=== PATIENT | female | born 1965 | race Hispanic/Latino ===

== ENCOUNTER 2018-12-03 23:17 | Emergency (ER) | payer SELFPAY ==
[~2018-12-03] VITALS: Ht 157.5 cm; Wt 68.0 kg
--- OUTSIDE RECORDS SUMMARY | 2018-12-03 23:19 | XMS REPORT ---
[facility] Address Unknown Phone Unavailable Care Team Providers Care Principal Technical Writer Name Role Phone Unavailable Unavailable Payers Payer Name Policy Type Policy Number Effective Date Expiration Date Problems This patient has no known problems. Allergies, Adverse Reactions, Alerts Allergy Name Allergy Type Status Severity Reaction(s) Onset Date Inactive Date Treating Clinician Comments No Known Allergies DA Active U 2018-08-18 00:00:00 No Known Allergies DA Active U 2018-08-16 00:00:00 No Known Allergies DA Active U 2016-04-01 00:00:00 Medications This patient has no known medications. Encounters Start Date/Time End Date/Time Encounter Type Admission Type Attending [facility] Facility Care Department Encounter ID 2018-12-20 00:00:00 2018-12-20 00:00:00 Outpatient [facility] [id number] 2018-12-14 00:00:00 2018-12-14 00:00:00 Outpatient [facility] [id number] 2018-12-10 00:00:00 2018-12-10 00:00:00 Outpatient [facility] [id number] 2018-12-03 18:33:55 2018-12-03 18:33:55 Outpatient [facility] [id number] 2018-11-30 09:33:46 2018-11-30 09:33:46 Outpatient [facility] [id number] 2018-11-30 07:14:38 2018-11-30 07:14:38 Outpatient [facility] [id number] 2018-11-28 08:29:02 2018-11-28 08:29:02 Outpatient [facility] [id number] 2018-11-27 08:46:56 2018-11-27 08:46:56 Outpatient [facility] [id number] 2018-11-20 14:43:15 2018-11-20 14:43:15 Outpatient [facility] [id number] 2018-11-15 10:33:29 2018-11-15 10:33:29 Outpatient [facility] [id number] 2018-11-09 00:00:00 2018-11-09 00:00:00 Outpatient [facility] [id number] 2018-11-01 08:06:57 2018-11-01 08:06:57 Outpatient [facility] [id number] 2018-10-09 07:43:15 2018-10-09 07:43:15 Outpatient [facility] [id number] 2018-10-09 00:00:00 2018-10-09 00:00:00 Outpatient [facility] [id number] 2018-10-09 00:00:00 2018-10-09 00:00:00 Outpatient [facility] [id number] 2018-10-09 00:00:00 2018-10-09 00:00:00 Outpatient [facility] [id number] 2018-10-09 00:00:00 2018-10-09 00:00:00 Outpatient [facility] [id number] 2018-10-04 00:00:00 2018-10-04 00:00:00 Outpatient [facility] [id number] 2018-10-03 14:43:03 2018-10-03 14:43:03 Outpatient [facility] [id number] 2018-09-28 00:00:00 2018-09-28 00:00:00 Outpatient [facility] [id number] 2018-09-28 00:00:00 2018-09-28 00:00:00 Outpatient [facility] [id number] 2018-09-27 13:52:43 2018-09-27 13:52:43 Outpatient [facility] [id number] 2018-09-27 13:42:47 2018-09-27 13:42:47 Outpatient [facility] [id number] 2018-09-27 12:07:16 2018-09-27 12:07:16 Outpatient [facility] [id number] 2018-09-27 10:56:25 2018-09-27 10:56:25 Outpatient [facility] [id number] 2018-09-27 10:40:50 2018-09-27 10:40:50 Outpatient [facility] [id number] 2018-09-27 09:58:57 2018-09-27 09:58:57 Outpatient [facility] [id number] 2018-09-27 00:00:00 2018-09-27 00:00:00 Outpatient [facility] [id number] 2018-09-25 07:44:54 2018-09-25 07:44:54 Outpatient [facility] [id number] 2018-09-11 11:25:40 2018-09-11 11:25:40 Outpatient [facility] [id number] 2018-09-11 10:10:35 2018-09-11 10:10:35 Outpatient [facility] [id number] 2018-09-04 14:35:37 2018-09-04 14:35:37 Emergency [facility] [id number]
--- OUTSIDE RECORDS SUMMARY | 2018-12-03 23:19 | XMS REPORT | Clinical Summary ---
Author Author [facility] Organization [facility] Address Unknown Phone Unavailable Care Team Providers Care Director Law Enforcement Name Role Phone Jos Dial MD PCP Allergies No Known Allergies Medications End Date Status Medication Sig Dispensed Refills Start Date 12/05/2018 Active azithromycin (ZITHROMAX) Take 2 6 Each 0 250 mg tabletIndications: tablets by 9 Acute pharyngitis, mouth on the unspecified etiology first day, then take one tablet every day for the next 4 days. 12/15/2018 Active benzonatate (TESSALON Take 1 45 capsule 1 PERLES) 100 mg capsule by 9 capsuleIndications: Cough mouth 3 times daily as needed for up to 15 days for Cough. Active predniSONE (DELTASONE) 50 Take 1 tablet 5 tablet 0 mg tabletIndications: by mouth 9 Enlargement of tonsils daily Take with food. 09/19/2018 metFORMIN (GLUCOPHAGE) Take 1 tablet 28 tablet 0 500 mg tabletIndications: by mouth 2 8 Left upper quadrant pain times daily (with meals) for 14 days. 09/11/2018 Discontinued ondansetron (ZOFRAN) 4 mg Take 1 tablet 10 tablet 0 tabletIndications: Left by mouth 8 upper quadrant pain every 12 hours as needed for up to 5 doses for Nausea. 09/19/2018 famotidine (PEPCID) 20 mg Take 1 tablet 28 tablet 0 tabletIndications: Left by mouth 2 8 upper quadrant pain times daily for 14 days. 12/03/2018 Discontinued ondansetron (ZOFRAN) 4 mg Take 1 tablet 10 tablet 0 tabletIndications: Left by mouth 8 upper quadrant pain every 12 hours as needed for up to 5 doses for Nausea. 09/27/2018 tropicamide (MYDRIACYL) Instill 1 15 mL 0 0.5 % ophthalmic Drop in each 8 solutionIndications: eye once as Uncontrolled type 2 needed for up diabetes mellitus with to 1 dose hyperglycemia (for poor retina scan image). 10/03/2018 Discontinued glyBURIDE-metFORMIN Take 2 360 tablet 1 (GLUCOVANCE) 2.5-500 mg tablets by 8 per tabletIndications: mouth 2 times Uncontrolled type 2 daily (with diabetes mellitus with meals). hyperglycemia Suspended gabapentin (NEURONTIN) Take 1 270 capsule 1 300 mg capsule by 8 capsuleIndications: mouth 3 times Uncontrolled type 2 daily. diabetes mellitus with hyperglycemia 10/07/2018 clindamycin (CLEOCIN HCL) Take 1 30 capsule 0 300 mg capsule by 8 capsuleIndications: mouth 3 times Aspiration pneumonia of daily for 10 right lower lobe, days. unspecified aspiration pneumonia type 10/12/2018 polyethylene glycol Mix 17 grams 255 g 0 (GLYCOLAX) 17 gram/dose into 4 to 8 8 oral powderIndications: ounces of Constipation, unspecified water, juice, constipation type soda, tea or coffee and drink as directed, one time a day. 11/28/2018 Discontinued metFORMIN (GLUCOPHAGE) Take 1 tablet 60 tablet 1 850 mg tabletIndications: by mouth 2 8 Type II or unspecified times daily type diabetes mellitus (with meals) with neurological for 30 days. manifestations, not stated as uncontrolled(250.60) Suspended losartan (COZAAR) 25 mg Take 1 tablet 90 tablet 1 tabletIndications: by mouth 8 Microalbuminuria daily. 11/28/2018 Discontinued loratadine (CLARITIN) 10 Take 1 tablet 30 tablet 0 mg tabletIndications: Ear by mouth 9 congestion, bilateral daily. 12/01/2018 amoxicillin (AMOXIL) 500 Take 1 20 capsule 0 mg capsuleIndications: capsule by 9 Acute tonsillitis, mouth 2 times unspecified etiology daily for 10 days. Suspended fluticasone (FLONASE Use 2 Sprays 16 g 0 ALLERGY RELIEF) 50 in each 9 mcg/actuation nasal nostril sprayIndications: Ear daily. congestion, bilateral Suspended cetirizine (ZYRTEC) 10 mg Take 1 tablet 60 tablet 1 tabletIndications: Fluid by mouth 9 level behind tympanic daily. membrane of both ears, Acute tonsillitis, unspecified etiology Suspended metFORMIN (GLUCOPHAGE) Take 1 tablet 180 tablet 1 850 mg tabletIndications: by mouth 2 9 Type II or unspecified times daily type diabetes mellitus (with meals). with neurological manifestations, not stated as uncontrolled(250.60) Active Problems Problem Noted Date Gastric polyps 11/28/2018 Hiatal hernia 11/28/2018 Chronic gastritis without bleeding 11/28/2018 Uncontrolled type 2 diabetes mellitus with hyperglycemia 09/27/2018 Intra-abdominal lymphadenopathy 09/27/2018 Renal cyst - rt repeat US in 03/1709/27/2018 Night sweats 09/27/2018 Loss of weight - 25lbs in 6 months 09/27/2018 Left upper quadrant pain 09/04/2018 Encounters Care Team Description Date Type Specialty Mckayla Lopes PA Negash, Rediate G, ARCHITECTURAL DRAFTER Mass of lateral neck (Primary Dx); Neck swelling; Tonsillar hypertrophy; Elevated glucose 12/03/2018 [facility] Day [facility] Che Richmond, RN 12/03/2018 Nurse Triage Dunia Almanzar MD Acute pharyngitis, unspecified etiology (Primary Dx); Cough; Enlargement of tonsils; Impacted cerumen of left ear; Type 2 diabetes mellitus with complication, without long-term current use of insulin 11/30/2018 [facility] Jos Dial MD Rao, Sishir, MD Arrived 11/30/2018 Hospital Radiology Encounter 11/30/2018 Travel Ida Thrasher MD Gastric polyps (Primary Dx); Hiatal hernia; Chronic gastritis without bleeding, unspecified gastritis type; Fluid level behind tympanic membrane of both ears; Acute tonsillitis, unspecified etiology; Uterine leiomyoma, unspecified location; Type II or unspecified type diabetes mellitus with neurological manifestations, not stated as uncontrolled(250.60) 11/28/2018 Office Visit Family Practice Ida Thrasher MD Type 2 diabetes mellitus with both eyes affected by 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, without long-term current use of insulin 11/27/2018 Lab Appointment Lab Ida Thrasher MD Type 2 diabetes mellitus with both eyes affected by 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, without long-term current use of insulin 11/27/2018 Orders Only Family Practice Arielle James NP Negash, Rediate G, NP Acute tonsillitis, unspecified etiology (Primary Dx); Ear congestion, bilateral 11/20/2018 [facility] Day [facility] Intra-abdominal lymphadenopathy 11/15/2018 Ancillary Radiology Procedure Jos Dial MD Encounter to establish care with new doctor 11/01/2018 Hospital Radiology Encounter 11/01/2018 Travel Ida Thrasher MD Type 2 diabetes mellitus with both eyes affected by 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, without long-term current use of insulin (Primary Dx); Microalbuminuria 10/09/2018 Office Visit Family Practice Ida Thrasher MD Type 2 diabetes mellitus with both eyes affected by 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, without long-term current use of insulin 10/09/2018 Orders Only Family Practice Arielle James NP Scott, Anita C, NP Multiple episodes of hypoglycemia (Primary Dx); Type II or unspecified type diabetes mellitus with neurological manifestations, not stated as uncontrolled(250.60); Encounter for medication adjustment 10/03/2018 Same Day Family Practice 10/03/2018 Travel 10/01/2018 Sarahi Bean RN 10/01/2018 Nurse Triage Pamela Hall RN 09/29/2018 Nurse Triage Ida Thrasher MD Intra-abdominal lymphadenopathy (Primary Dx) 09/28/2018 Orders Only Family Practice Ida Thrasher MD Encounter to establish care with new doctor 09/27/2018 Ancillary Radiology Procedure Ida Thrasher MD 09/27/2018 Ancillary Radiology Procedure Ida Thrasher MD Uncontrolled type 2 diabetes mellitus with hyperglycemia (Primary Dx); Intra-abdominal lymphadenopathy; Loss of weight - 25lbs in 6 months ; Renal cyst; Aspiration pneumonia of right lower lobe, unspecified aspiration pneumonia type; Night sweats; Constipation, unspecified constipation type 09/27/2018 Office Visit Family Practice Jos Dial MD Oden, Mary A, RN 09/27/2018 Nurse Only Idalia Benson RN 09/27/2018 Nurse Only Ida Thrasher MD Uncontrolled type 2 diabetes mellitus with hyperglycemia 09/27/2018 Orders Only Family Practice Type 2 diabetes mellitus with hemoglobin A1c goal to be determined; Pain of upper abdomen 09/25/2018 Ancillary Radiology Procedure Jos Dial MD Encounter to establish care with new doctor 09/11/2018 Lab Appointment Lab Jos Dial MD Encounter to establish care with new doctor (Primary Dx); Type 2 diabetes mellitus with hemoglobin A1c goal to be determined; Pain of upper abdomen; Left upper quadrant pain 09/11/2018 Office Visit Family Practice Aaron Kan MD Left upper quadrant pain (Primary Dx) 09/04/2018 Emergency Emergency Medicine after 12/02/2017 Immunizations Name Dates Previously Given Next Due Influenza, 09/11/2018 Vaccine<FLUCELVAX>(Multi- Dose) PNEUMOCOCCAL 23-VALPS 10/09/2018, 09/27/2018 (Deferred: Other - patient VACCINE 25 MCG/0.5 ML received flu vaccine on 09/11/2018 and needs to INJECTION wait 4 weeks between vaccines.) TDap (Tetanus Toxoid, 09/11/2018 Reduced Diphtheria Toxoid And Acellular Pertussis, Absorbed) Tropicamide 0.5% Eye-Angelica 09/27/2018 15ml Family History Relation Name Status Comments Father Alive Mother Alive Social History Date Tobacco Use Types Packs/Day Years Used Never Smoker Smokeless Tobacco: Never Used Tobacco Cessation: Counseling Given: No Alcohol Use Drinks/Week oz/Week Comments Yes 3 Glasses of 4.8 wine 3 Cans of beer 2 Shots of liquor Sex Assigned at Date Recorded Not on file Industry Job Start Date Occupation Not on file Not on file Not on file Travel End Travel History Travel Start No recent travel history available. Last Filed Vital Signs Time Taken Vital Sign Reading 12/03/2018 6:37 PM TEST EQUIPMENT MECHANIC Blood Pressure 142/91 12/03/2018 6:37 PM TEST EQUIPMENT MECHANIC Pulse 112 12/03/2018 6:37 PM TEST EQUIPMENT MECHANIC Temperature 36.8 C (98.2 F) 12/03/2018 6:37 PM TEST EQUIPMENT MECHANIC Respiratory Rate 17 12/03/2018 6:37 PM TEST EQUIPMENT MECHANIC Oxygen Saturation 100% - Inhaled Oxygen - Concentration 12/03/2018 6:37 PM TEST EQUIPMENT MECHANIC Weight 68.4 kg (150 lb 12.8 oz) 12/03/2018 6:37 PM TEST EQUIPMENT MECHANIC Height 158.9 cm (5' 2.56") 12/03/2018 6:37 PM TEST EQUIPMENT MECHANIC Body Mass Index 27.09 Plan of Treatment Care Team Description Date Type Specialty Ida Thrasher MD [address] [place] [address] [id number] [place] [address] feels her neck swollena and to make sure everything is well before her biopsy.. , 12/10/2018 Office Visit Family Practice Rahul Roya, OD [address] [place] [address] Ida Thrasher MD [address] [place] [address] [id number] [place] [address] 12/20/2018 Office Visit Ophthalmology Health Maintenance Due Date Last Done Comments Cervical Cancer Scrn (3 1988 Yrs) Breast Cancer Scrn 09/27/2019 09/27/2018 (Yearly) DM Retinal Exam (Yearly) 09/27/2019 09/27/2018 Colorectal Cancer Scrn 10/09/2019 10/09/2018 Annual (FIT/FOBT) Age 50 to 75 DM HGBA1C (Yearly) 11/27/2019 11/27/2018, 09/11/2018 DM Foot Exam (Yearly) 11/30/2019 11/30/2018 IMM Influenza Seasonal Completed 09/11/2018 Oct to December (>/=19 yrs) Procedures * The patient is currently admitted. The information in this section might not be complete until the patient is discharged. Comments Procedure Name Priority Date/Time Associated Diagnosis GLUCOSE POC Routine 12/03/2018 Elevated glucose 6:48 PM TEST EQUIPMENT MECHANIC DIABETIC FOOT EXAM Routine 11/30/2018 Type 2 diabetes mellitus 11:08 AM TEST EQUIPMENT MECHANIC with complication, without long-term current use of insulin POC GROUP A STREP SCREEN Routine 11/30/2018 Acute pharyngitis, unspecified etiology PT/INR Routine 11/27/2018 8:42 AM TEST EQUIPMENT MECHANIC CBC/DIFF Routine 11/27/2018 8:42 AM TEST EQUIPMENT MECHANIC VIT D, 25-HYDROXY Routine 11/27/2018 8:42 AM TEST EQUIPMENT MECHANIC TSH Routine 11/27/2018 8:42 AM TEST EQUIPMENT MECHANIC LIPID PROFILE Routine 11/27/2018 8:42 AM TEST EQUIPMENT MECHANIC HIV-1/HIV-2 ROUTINE Routine 11/27/2018 SCREENING 8:42 AM TEST EQUIPMENT MECHANIC HEPATITIS PANEL Routine 11/27/2018 8:42 AM TEST EQUIPMENT MECHANIC COMPREHENSIVE METABOLIC Routine 11/27/2018 PANEL(DBIL NOT INCLUDED) 8:42 AM TEST EQUIPMENT MECHANIC HEMOGLOBIN A1C Routine 11/27/2018 Type 2 diabetes mellitus 8:42 AM TEST EQUIPMENT MECHANIC with both eyes affected by 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, without long-term current use of insulin U/S TRANSVAGINAL Routine 11/15/2018 Intra-abdominal 11:35 AM TEST EQUIPMENT MECHANIC lymphadenopathy U/S PELVIS LTD NON-OB Routine 11/15/2018 Intra-abdominal 11:35 AM TEST EQUIPMENT MECHANIC lymphadenopathy XRAY UPPER GI W AIR Routine 11/01/2018 Encounter to establish CONTRAST 10:10 AM TEST EQUIPMENT MECHANIC care with new doctor OCCULT BLOOD ICT Routine 10/09/2018 4:00 PM TEST EQUIPMENT MECHANIC GLUCOSE POC Routine 10/03/2018 2:55 PM TEST EQUIPMENT MECHANIC OPHTHALMOLOGY RETINAL Routine 09/27/2018 Uncontrolled type 2 SCAN 2:31 PM TEST EQUIPMENT MECHANIC diabetes mellitus with hyperglycemia MAMMOGRAM BILAT SCREEN Routine 09/27/2018 Encounter to establish DIGITAL 2:22 PM TEST EQUIPMENT MECHANIC care with new doctor XRAY CHEST 2 VIEWS Routine 09/27/2018 Aspiration pneumonia of 1:50 PM TEST EQUIPMENT MECHANIC right lower lobe, unspecified aspiration pneumonia type MICROALBUM, URINE Routine 09/27/2018 Uncontrolled type 2 12:06 PM TEST EQUIPMENT MECHANIC diabetes mellitus with hyperglycemia BMP POC Routine 09/27/2018 10:10 AM TEST EQUIPMENT MECHANIC CT ABDOMEN W CONTRAST Routine 09/25/2018 Type 2 diabetes mellitus 9:09 AM TEST EQUIPMENT MECHANIC with hemoglobin A1c goal to be determined Pain of upper abdomen BASIC METABOLIC PANEL Routine 09/11/2018 Encounter to establish 11:20 AM TEST EQUIPMENT MECHANIC care with new doctor LIVER PROFILE Routine 09/11/2018 Encounter to establish 11:20 AM TEST EQUIPMENT MECHANIC care with new doctor CBC/DIFF Routine 09/11/2018 Encounter to establish 11:20 AM TEST EQUIPMENT MECHANIC care with new doctor HEMOGLOBIN A1C Routine 09/11/2018 Encounter to establish 11:20 AM TEST EQUIPMENT MECHANIC care with new doctor HIV-1/HIV-2 ROUTINE STAT 09/04/2018 SCREENING 3:30 PM TEST EQUIPMENT MECHANIC GLUCOSE POC Routine 09/04/2018 2:00 PM TEST EQUIPMENT MECHANIC after 12/02/2017 Results * GLUCOSE POC (12/03/2018 6:48 PM TEST EQUIPMENT MECHANIC) Only the most recent of 3 results within the time period is included. Pathologist [facility] Glucose POC 287 (H) 74 - 106 mg/dL [facility] Performing Organization Address City/State/Zipcode Phone Number [facility] * DIABETIC FOOT EXAM (11/30/2018 11:08 AM TEST EQUIPMENT MECHANIC) Narrative Performed At Dunia Almanzar MD 11/30/20181:57 PM Diabetic Foot Exam was performed at 11/30/2018 11:08 AM.Right foot sensation is reduced, right foot pulses are normal, right foot appearance is normal.Left foot sensation is reduced,left foot pulses are normal, left foot appearance is normal. * POC GROUP A STREP SCREEN (11/30/2018) Group A Strep Neg Neg - Neg POC GAS (Contr) Pass Pass - Pass * VIT D, 25-HYDROXY (11/27/2018 8:42 AM TEST EQUIPMENT MECHANIC) Pathologist [facility] Vit D, 29.1 (L) 30 - 100 ng/mL BT DIAGNOSTIC 25-Hydroxy Comment: IMMUNOLOGY Vitamin D deficiency has been defined by the [place] [employer] and Endocrine Society guideline as a level of serum 25-OH Vitamin D less than 20 ng/mL. The Endocrine Society further defines Vitamin D insufficiency as a level between 21 and 29 ng/mL and sufficiency as a level between 30 and 100 ng/mL. Performing Organization Address City[facility] Phone Number [facility] DI[facility]STIC IMMUNOLOGY * HIV-1/HIV-2 ROUTINE SCREENING (11/27/2018 8:42 AM TEST EQUIPMENT MECHANIC) Only the most recent of 2 results within the time period is included. HIV-1/HIV-2 Negative NEG BT OUTPATIENT DRAW 2 Performing Organization Address [facility] Phone Number [facility] * HEMOGLOBIN A1C (11/27/2018 8:42 AM TEST EQUIPMENT MECHANIC) Only the most recent of 2 results within the time period is included. Hemoglobin A1c 6.5 (H) 4.3 - 6.1 % BT DIAGNOSTIC IMMUNOLOGY Est Average 139.9 mg/dL BT DIAGNOSTIC Gluc IMMUNOLOGY Specimen Blood Performing Organization Address [facility] Phone Number [facility] BT DIAGNOSTIC IMMUNOLOGY * COMPREHENSIVE METABOLIC PANEL(DBIL NOT INCLUDED) (11/27/2018 8:42 AM TEST EQUIPMENT MECHANIC) Albumin 4.1 3.7 - 5.3 g/dL BT MAIN-STATION 1 Calcium 10.3 8.6 - 10.3 mg/dL BT MAIN-STATION 1 CO2 31 21 - 31 mmol/L BT MAIN-STATION 1 Chloride 100 98 - 107 mmol/L BT MAIN[facility] 1 Creatinine 0.90 0.6 - 1.2 mg/dL BT MAIN-[facility]ATION 1 Glucose 103 70 - 110 mg/dL BT MAIN[facility]ATION 1 Alk Phos 70 34 - 104 U/L BT MAIN-STATION 1 Potassium 5.2 (H) 3.5 - 5.1 mmol/L BT MAIN-STATION 1 Sodium 138 136 - 145 mmol/L BT MAIN-STATION 1 ALT 13 7 - 52 U/L BT MAIN-STATION 1 AST 17 13 - 39 U/L BT MAIN-STATION 1 Urea Nitrogen 26 (H) 7 - 25 mg/dL BT MAIN[facility]ATION 1 T Bilirubin 0.5 0.2 - 1.2 mg/dL BT MAIN[facility]ATION 1 T Protein 8.1 6.0 - 8.3 g/dL BT MAIN-STATION 1 GFR, Estimated >60 mL/min/1.73 m2 BT MAIN-STATION 1 GFR, Estim, >60 mL/min/1.73 m2 BT MA[facility] Afr-Am 1 Anion Gap 7 BT MAIN-STATION 1 Performing Organization Address [facility]/State[facility] Phone Number [facility] BT [facility] 1 * TSH (11/27/2018 8:42 AM TEST EQUIPMENT MECHANIC) TSH 0.78 0.57 - 3.74 uIU/mL BT MAIN-STATION 1 Performing Organization Address City/[facility] Phone Number [facility] BT [facility] 1 * PT/INR (11/27/2018 8:42 AM TEST EQUIPMENT MECHANIC) PT 12.9 11.8 - 15.0 Seconds BT MAIN-STATION 4 INR 1.0 BT MAIN-STATION SUGGESTED THERAPEUTIC RANGES: 4 INR 2.0-3.0 for MODERATE INTENSITY ANTICOAGULATION INR 2.5-3.5 for HIGH INTENSITY ANTICOAGULATION Performing Organization Address [facility] Phone Number [facility] BT MAIN-STATION 4 * LIPID PROFILE (11/27/2018 8:42 AM TEST EQUIPMENT MECHANIC) Cholesterol 280 mg/dL BT MAIN-STATION Comment: 1 REFERENCE RANGE: Desirable: <200 mg/dL Borderline: 200-240 mg/dL High Risk: >240 mg/dL Triglyceride 177 (H) <150 mg/dL BT [facility]STATION Comment: 1 REFERENCE RANGE: Normal: <150 mg/dL Borderline High: 150-199 mg/dL High: 200-499 mg/dL Very High: >kp=182 mg/dL HDL 57 mg/dL BT [facility] Comment: 1 Increased CHD risk: <40 mg/dL Decreased CHD risk: >60 mg/dL LDL 188 mg/dL BT [facility] Comment: 1 REFERENCE RANGE: Optimal: <100 mg/dL Near Optimal: 100-129 mg/dL Borderline High: 130-159 mg/dL High: 160-189 mg/dL Very High: >pg=517 mg/dL Performing Organization Address City/[facility] Phone Number [facility] BT [facility]IN-ST[facility] 1 * HEPATITIS PANEL (11/27/2018 8:42 AM TEST EQUIPMENT MECHANIC) HCV IgG Negative NEG BT OUTPATIENT DRAW 2 HBsAg Negative NEG BT OUTPATIENT DRAW 2 HAV, IgM Negative NEG BT OUTPATIENT DRAW 2 HBcAb, IgM Negative NEG BT OUTPATIENT DRAW 2 Performing Organization Address City/State[facility] Phone Number [facility] BT OUTPATIENT DRAW 2 * CBC/DIFF (11/27/2018 8:42 AM TEST EQUIPMENT MECHANIC) Only the most recent of 2 results within the time period is included. WBC 5.4 4.5 - 11.0 K/uL BT MAIN-STATION 2 RBC 4.67 4.20 - 5.40 M/uL BT MAIN-STATION 2 Hemoglobin 13.1 12.0 - 16.0 g/dL BT MAIN-STATION 2 Hematocrit 40.9 37.0 - 47.0 % BT MAIN-STATION 2 MCV 88 82 - 92 fL BT MAIN-STATION 2 MCH 28.1 27.0 - 32.0 pg BT MAIN-STATION 2 MCHC 32.0 32.0 - 36.0 g/dL BT MAIN-STATION 2 RDW 42.5 36.4 - 46.3 fL BT MAIN-STATION 2 Platelet 369 150 - 400 K/uL BT MAIN-STATION 2 Mean Platelet 10.3 9.4 - 12.4 fL BT MAIN[facility]ATION Volume 2 Percent NRBC 0.0 BT MAIN-STATION 2 Absolute NRBC 0.00 BT MAIN-STATION 2 Neutrophil 65.1 34.0 - 70.0 % BT MAIN-STATION 2 Lymphocyte 22.6 20.0 - 50.0 % BT MAIN-STATION 2 Monocyte 10.2 5.0 - 12.0 % BT MAIN-STATION 2 Eosinophil 1.5 0.7 - 5.0 % BT MAIN-STATION 2 Basophil 0.4 0.1 - 1.2 % BT MAIN-STATION 2 Pct Immat Gran 0.2 0.0 - 0.5 BT MAIN-STATION 2 Neutrophil, Abs 3.52 1.56 - 6.13 K/uL BT MAIN-STATION 2 Lymphocyte, Abs 1.22 1.18 - 3.74 K/uL BT MAIN-STATION 2 Monocyte, Abs 0.55 (H) 0.24 - 0.36 K/uL BT MAIN-STATION 2 Eosinophil, Abs 0.08 0.04 - 0.36 K/uL BT MAIN-STATION 2 Basophil, Abs 0.02 0.01 - 0.08 K/uL BT MAIN-STATION 2 Absol Immat 0.01 0.00 - 0.03 K/uL BT MAIN-STATION Gran 2 Performing Organization Address City/State/Zipcode Phone Number [facility] BT MAIN-STATION 2 * U/S PELVIS LTD NON-OB (11/15/2018 11:35 AM TEST EQUIPMENT MECHANIC) Impressions Performed At IMPRESSION: SMS Limited visualization due to uterine positioning. Multi fibroid uterus. Signed By: Rajani Villalba MD, 11/15/2018 12:05 PM Narrative Performed At EXAM: Transabdominal and Transvaginal Pelvic Ultrasound SMS INDICATION: rule out pelvic malignancy COMPARISON: CT abdomen with contrast dated 09/25/2018 TECHNIQUE: Grayscale transverse and sagittal transabdominal and transvaginal images were obtained of the pelvis. Transvaginal imaging was medically necessary to better evaluate the endometrium and the adnexa. CLINICAL HISTORY: 53 year old A0; last menstrual period: Years ago. FINDINGS: Uterus Orientation: Retroverted Size: 6.6 x 4.1 x 4.3 cm, Normal Mass: 1.) 1.2 x 0.9 x 0.9 cm intramural posterior body fibroid 2.) 1.3 x 1.2 x 1.5 cm intramural right body fibroid with calcifications 0.3 x 0.2 x 0.2 cm calcification in the right lower uterine segment Cervix: Nabothian cysts Endometrium: Thickness: 0.5 cm, normal for postmenopausal patient without vaginal bleeding. Appearance:Homogeneous echotexture without focal thickening. Right ovary: Size:2.2 x 1.4 x 1 cm Mass/Cyst: None Left ovary: Size: 2.2 x 0.9 x 1.3 cm Mass/Cyst: None Adnexa: Normal Cul-de-sac: No free fluid Procedure Note Interface, Rad/Mammog In - 11/15/2018 12:10 PM TEST EQUIPMENT MECHANIC EXAM: Transabdominal and Transvaginal Pelvic Ultrasound INDICATION: rule out pelvic malignancy COMPARISON: CT abdomen with contrast dated 09/25/2018 TECHNIQUE: Grayscale transverse and sagittal transabdominal and transvaginal images were obtained of the pelvis. Transvaginal imaging was medically necessary to better evaluate the endometrium and the adnexa. CLINICAL HISTORY: 53 year old A0; last menstrual period: Years ago. FINDINGS: Uterus Orientation: Retroverted Size: 6.6 x 4.1 x 4.3 cm, Normal Mass: 1.) 1.2 x 0.9 x 0.9 cm intramural posterior body fibroid 2.) 1.3 x 1.2 x 1.5 cm intramural right body fibroid with calcifications 0.3 x 0.2 x 0.2 cm calcification in the right lower uterine segment Cervix: Nabothian cysts Endometrium: Thickness: 0.5 cm, normal for postmenopausal patient without vaginal bleeding. Appearance: Homogeneous echotexture without focal thickening. Right ovary: Size: 2.2 x 1.4 x 1 cm Mass/Cyst: None Left ovary: Size: 2.2 x 0.9 x 1.3 cm Mass/Cyst: None Adnexa: Normal Cul-de-sac: No free fluid IMPRESSION IMPRESSION: Limited visualization due to uterine positioning. Multi fibroid uterus. Signed By: Rajani Villalba MD, 11/15/2018 12:05 PM Performing Organization Address City/State/Zipcode Phone Number SMS * U/S TRANSVAGINAL (11/15/2018 11:35 AM TEST EQUIPMENT MECHANIC) Impressions Performed At IMPRESSION: SMS Limited visualization due to uterine positioning. Multi fibroid uterus. Signed By: Rajani Villalba MD, 11/15/2018 12:05 PM Narrative Performed At EXAM: Transabdominal and Transvaginal Pelvic Ultrasound SMS INDICATION: rule out pelvic malignancy COMPARISON: CT abdomen with contrast dated 09/25/2018 TECHNIQUE: Grayscale transverse and sagittal transabdominal and transvaginal images were obtained of the pelvis. Transvaginal imaging was medically necessary to better evaluate the endometrium and the adnexa. CLINICAL HISTORY: 53 year old A0; last menstrual period: Years ago. FINDINGS: Uterus Orientation: Retroverted Size: 6.6 x 4.1 x 4.3 cm, Normal Mass: 1.) 1.2 x 0.9 x 0.9 cm intramural posterior body fibroid 2.) 1.3 x 1.2 x 1.5 cm intramural right body fibroid with calcifications 0.3 x 0.2 x 0.2 cm calcification in the right lower uterine segment Cervix: Nabothian cysts Endometrium: Thickness: 0.5 cm, normal for postmenopausal patient without vaginal bleeding. Appearance:Homogeneous echotexture without focal thickening. Right ovary: Size:2.2 x 1.4 x 1 cm Mass/Cyst: None Left ovary: Size: 2.2 x 0.9 x 1.3 cm Mass/Cyst: None Adnexa: Normal Cul-de-sac: No free fluid Procedure Note Interface, Rad/Mammog In - 11/15/2018 12:10 PM TEST EQUIPMENT MECHANIC EXAM: Transabdominal and Transvaginal Pelvic Ultrasound INDICATION: rule out pelvic malignancy COMPARISON: CT abdomen with contrast dated 09/25/2018 TECHNIQUE: Grayscale transverse and sagittal transabdominal and transvaginal images were obtained of the pelvis. Transvaginal imaging was medically necessary to better evaluate the endometrium and the adnexa. CLINICAL HISTORY: 53 year old A0; last menstrual period: Years ago. FINDINGS: Uterus Orientation: Retroverted Size: 6.6 x 4.1 x 4.3 cm, Normal Mass: 1.) 1.2 x 0.9 x 0.9 cm intramural posterior body fibroid 2.) 1.3 x 1.2 x 1.5 cm intramural right body fibroid with calcifications 0.3 x 0.2 x 0.2 cm calcification in the right lower uterine segment Cervix: Nabothian cysts Endometrium: Thickness: 0.5 cm, normal for postmenopausal patient without vaginal bleeding. Appearance: Homogeneous echotexture without focal thickening. Right ovary: Size: 2.2 x 1.4 x 1 cm Mass/Cyst: None Left ovary: Size: 2.2 x 0.9 x 1.3 cm Mass/Cyst: None Adnexa: Normal Cul-de-sac: No free fluid IMPRESSION IMPRESSION: Limited visualization due to uterine positioning. Multi fibroid uterus. Signed By: Rajani Villalba MD, 11/15/2018 12:05 PM Performing Organization Address [facility] Phone Number SMS * XRAY UPPER GI W AIR CONTRAST (11/01/2018 10:10 AM TEST EQUIPMENT MECHANIC) Impressions Performed At IMPRESSION: SMS 1.Several small round filling defects within the stomach body may represent sessile polyps. If clinically warranted, endoscopy is recommended. 2.Small hiatal hernia with minimal gastroesophageal reflux. 3.Mild gastritis. This [facility] radiology report is a preliminary resident dictation until finalized by an attending.Changes to this preliminary report may occur in an additional preliminary or finalized version. Dictated By: Deana Mendoza MD, 11/01/2018 10:21 AM I have reviewed the study and agree with the findings in this report. Signed By: Chester Moreau MD, 11/01/2018 10:49 AM Narrative Performed At EXAM: FLUOROSCOPY BARIUM UPPER GI DOUBLE CONTRAST SMS DATE: 11/01/2018 10:10 AM INDICATION: abdominal pain. Encounter to establish care with new doctor ADDITIONAL INFORMATION: None. COMPARISON: None. TECHNIQUE: Upper GI was performed using double contrast technique orally. DISCUSSION: Swallowing: Normal. Esophagus: Motility: Normal. Anatomy: Small hiatal hernia with minimal gastroesophageal reflux visualized under fluoroscopy. No filling defects, mucosal irregularities, obstructions or extrinsic compressions identified. Stomach:There is mild prominence of the gastric mucosa, which this suggestive of mild gastritis. There are several small round filling defects within the body of the stomach that may be compatible with sessile polyps. If clinically warranted, further evaluation with endoscopy is recommended. Duodenum:Normal. Procedure Note Interface, Rad/Mammog In - 11/01/2018 10:54 AM TEST EQUIPMENT MECHANIC EXAM: FLUOROSCOPY BARIUM UPPER GI DOUBLE CONTRAST DATE: 11/01/2018 10:10 AM INDICATION: abdominal pain. Encounter to establish care with new doctor ADDITIONAL INFORMATION: None. COMPARISON: None. TECHNIQUE: Upper GI was performed using double contrast technique orally. DISCUSSION: Swallowing: Normal. Esophagus: Motility: Normal. Anatomy: Small hiatal hernia with minimal gastroesophageal reflux visualized under fluoroscopy. No filling defects, mucosal irregularities, obstructions or extrinsic compressions identified. Stomach: There is mild prominence of the gastric mucosa, which this suggestive of mild gastritis. There are several small round filling defects within the body of the stomach that may be compatible with sessile polyps. If clinically warranted, further evaluation with endoscopy is recommended. Duodenum: Normal. IMPRESSION IMPRESSION: 1. Several small round filling defects within the stomach body may represent sessile polyps. If clinically warranted, endoscopy is recommended. 2. Small hiatal hernia with minimal gastroesophageal reflux. 3. Mild gastritis. This [facility] radiology report is a preliminary resident dictation until finalized by an attending. Changes to this preliminary report may occur in an additional preliminary or finalized version. Dictated By: Deana Mendoza MD, 11/01/2018 10:21 AM I have reviewed the study and agree with the findings in this report. Signed By: Chester Moreau MD, 11/01/2018 10:49 AM Performing Organization Address City/State/Zipcode Phone Number SMS * OCCULT BLOOD ICT (10/09/2018 4:00 PM TEST EQUIPMENT MECHANIC) Occult Blood Negative [facility] ICT Performing Organization Address City/State/Zipcode Phone Number [facility] * OPHTHALMOLOGY RETINAL SCAN (09/27/2018 2:31 PM TEST EQUIPMENT MECHANIC) RETINAL ALERT (A) [facility] SCAN-FINAL RESULT Right Diabetic Moderate (A) [facility] Retinopathy Right Macular Mild (A) [facility] Edema Right Other None [facility] Suspected Conditions Right Image Gradeable Image [facility] Quality Left Diabetic Moderate (A) [facility] Retinopathy Left Macular None [facility]IS Edema Left Other None IRIS Suspected Conditions Left Image Gradeable Image [facility]IS Quality Narrative Performed At Retinal Study Result for MARISELA MARTIN CLARA, a 53 y/o, F (: 1965, ) presented to [facility] on 09-27-2018 for a retinal imaging study of the left and right eyes. Based on the findings of the study, the following is recommended for MARISELA MARTIN Moderate Diabetic Retinopathy Found: Please advise the patient to return for another scan in 6 months.Risk Assessment:One year early PDR 26.3% | One year High Risk PDR: 8.1%. Interpreting Provider's Comments:No comments provided Right Eye Findings: Diabetic Retinopathy: Moderate Macular Edema: Mild Left Eye Findings: Diabetic Retinopathy: Moderate This result was electronically signed by Sang Thompson MD, , Taxonomy: [id number] on 09-27-2018 07:31:28 [facility] time. NOTE:Any pathology noted on this diabetic retinal evaluation should be confirmed by an appropriate ophthalmic examination. Performing Organization Address City/State/Zipcode Phone Number IRIS * MAMMOGRAM BILAT SCREEN DIGITAL (09/27/2018 2:22 PM TEST EQUIPMENT MECHANIC) Impressions Performed At IMPRESSION: BENIGN SMS There is no mammographic evidence of malignancy. A 1 year screening mammogram is recommended. This document has been electronically signed. Ena alegria/pencassandra:09/27/2018 14:52:37 Agricultural Economics Professor: Kayla Valle, [facility] letter sent: Mammography Normal Mammogram BI-RADS: 2 Benign G0202 z12.31 Narrative Performed At #[id number] - MAMMOGRAM BILAT SCREEN DIGITAL SMS BILATERAL DIGITAL SCREENING MAMMOGRAM WITH CAD: 09/27/2018 CLINICAL: Screening Mammogram. No prior exams were available for comparison. There are scattered fibroglandular elements in both breasts that could obscure a lesion on mammography. Current study was also evaluated with a Computer Aided Detection (CAD) system. There are benign calcifications in both breasts. No significant masses, calcifications, or other findings are seen in either breast. Procedure Note Interface, Rad/Mammog In - 09/27/2018 3:21 PM TEST EQUIPMENT MECHANIC #[id number] - MAMMOGRAM BILAT SCREEN DIGITAL BILATERAL DIGITAL SCREENING MAMMOGRAM WITH CAD: 09/27/2018 CLINICAL: Screening Mammogram. No prior exams were available for comparison. There are scattered fibroglandular elements in both breasts that could obscure a lesion on mammography. Current study was also evaluated with a Computer Aided Detection (CAD) system. There are benign calcifications in both breasts. No significant masses, calcifications, or other findings are seen in either breast. IMPRESSION IMPRESSION: BENIGN There is no mammographic evidence of malignancy. A 1 year screening mammogram is recommended. This document has been electronically signed. Ena alegria/natali:09/27/2018 14:52:37 Agricultural Economics Professor: Kayla Valle [facility] letter sent: Mammography Normal Mammogram BI-RADS: 2 Benign G0202 z12.31 Performing Organization Address City/State/Zipcode Phone Number SMS * XRAY CHEST 2 VIEWS (09/27/2018 1:50 PM TEST EQUIPMENT MECHANIC) Impressions Performed At IMPRESSION: SMS 1.Minimal basilar opacities could represent atelectasis, aspiration, or pneumonia. Signed By: Steve Aguirre MD, 09/27/2018 2:21 PM Narrative Performed At EXAM: XRAY CHEST 2 VIEWS SMS DATE: 09/27/2018 1:50 PM INDICATION: suspected aspiration pna on CT RLL COMPARISON: None FINDINGS: Devices, Lines, and Tubes: None. Heart and Mediastinum: The cardiomediastinal silhouette is unremarkable. Lungs and Pleura: Minimal basilar opacities. Bones and Soft Tissues: No acute findings. Procedure Note Interface, Rad/Mammog In - 09/27/2018 2:26 PM TEST EQUIPMENT MECHANIC EXAM: XRAY CHEST 2 VIEWS DATE: 09/27/2018 1:50 PM INDICATION: suspected aspiration pna on CT RLL COMPARISON: None FINDINGS: Devices, Lines, and Tubes: None. Heart and Mediastinum: The cardiomediastinal silhouette is unremarkable. Lungs and Pleura: Minimal basilar opacities. Bones and Soft Tissues: No acute findings. IMPRESSION IMPRESSION: 1. Minimal basilar opacities could represent atelectasis, aspiration, or pneumonia. Signed By: Steve Aguirre MD, 09/27/2018 2:21 PM Performing Organization Address City/State/Zipcode Phone Number SMS * MICROALBUM, URINE (09/27/2018 12:06 PM TEST EQUIPMENT MECHANIC) Microalbum, 14.3 0.0 - 29.0 mg/dL BT [facility] Random 1 Creatinine, Ur 353.6 (H) 20 - 320 mg/dL [facility] 1 Urine 40.4 (H) 0 - 29 mg/g UCR [facility] Microalbumin Comment: 1 To minimize intra-individual variation, analysis of three random urine samples collected over the course of a week is recommended. Performing Organization Address City/State/Zipcode Phone Number MISYS [facility] 1 * BMP POC (09/27/2018 10:10 AM TEST EQUIPMENT MECHANIC) TCO2 POC 27 21 - 32 mmol/L [facility] Chloride POC 100 98 - 107 mmol/L [facility] Potassium POC 4.0 3.50 - 5.10 mmol/L [facility] Sodium POC 140 136 - 145 mmol/L [facility] Glucose POC 193 (H) 74 - 106 mg/dL [facility] Urea Nitrogen 14 7 - 18 mg/dL [facility] POC Creatinine POC 0.9 0.6 - 1.3 mg/dL [facility] Ionized Calcium 1.22 1.15 - 1.29 mmol/L [facility] POC GFR, Estimated >60 mL/min/1.73 m2 [facility] GFR, Estim, >60 mL/min/1.73 m2 [facility] Afr-Am Performing Organization Address City/[facility] Phone Number [facility] * CT ABDOMEN W CONTRAST (09/25/2018 9:09 AM TEST EQUIPMENT MECHANIC) Impressions Performed At IMPRESSION: SMS 1.3.3cm right interpolar cyst with punctate internal calcifications. Bosniak 2F , recommend US or CT followup in 6 months. 2.Hepatic steatosis. 3.Multiple left para-aortic lymph nodes. This may represent lymphoma. However, metastatic lymph nodes from an unknown primary such as a pelvic malignancy (not imaged). 4.Subtle groundglass opacity in the right lower lobe, possibly aspiration pneumonia. Dictated By: Garfield Blanco MD, 09/25/2018 10:20 AM I have reviewed the study and agree with the findings in this report. Signed By: Estevan Jacobs MD, 09/25/2018 3:51 PM Narrative Performed At EXAM: CT Abdomen WITH contrast SMS INDICATION: Left upper abdominal pain COMPARISON: None available TECHNIQUE: Abdomen was scanned utilizing a multidetector helical scanner from the lung base to the iliac crest after administration of IV contrast. Coronal and sagittal reformations were obtained. Routine protocol was performed. Scan was performed when during portal venous phase. IV CONTRAST: 96 mL of Omnipaque 300 ORAL CONTRAST: Water COMPLICATIONS: None RADIATION DOSE: Total DLP: 482 mGy*cm Estimated effective dose: (DLP x 0.015 x size factor) mSv CTDIvol has been reviewed. It is below the limits set by the Radiation Protocol Committee (RPC). FINDINGS: LINES and TUBES: None. LOWER THORAX:Mild right lower lobe lower lobe ground glass opacities, likely focal pneumonia or aspiration. Mild dependent atelectasis. HEPATOBILIARY: Diffusely decreased attenuation of the liver compared to the spleen, consistent with steatosis.No focal hepatic lesions. No intrahepatic biliary ductal dilation. GALLBLADDER: Surgically absent. Common bile duct dilatation up to 9 mm, consistent with postcholecystectomy reservoir effect. SPLEEN: No splenomegaly. Well-circumscribed 8 mm soft tissue density lesion inferior to the spleen (image 59, series 601), most consistent with a splenule. PANCREAS: No focal masses or ductal dilatation. ADRENALS: No adrenal nodules. KIDNEYS/URETERS: Kidneys enhance symmetrically.No hydronephrosis. Nonspecific lobulated contour bilaterally. No perinephric fat stranding. Well-circumscribed 3.0 x 3.3 x 2.9 cm partially exophytic right interpolar cystic lesion (image 28-30, series 2) with minimal thin septation and multiple punctate wall calcifications (Bosniak 2F). GI TRACT: No abnormal distention, wall thickening, or evidence of bowel obstruction of the proximal small bowel and partially visualized colon. LYMPH NODES: Multiple left para-aortic lymph nodes with the largest measuring 1.8 x 2.5 cm (series 2 image 31). VESSELS: Unremarkable. PERITONEUM / RETROPERITONEUM: No free air or fluid. 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 Mild degenerative changes within the thoracic spine. SOFT TISSUES: Unremarkable. Procedure Note Interface, Rad/Mammog In - 09/25/2018 3:56 PM TEST EQUIPMENT MECHANIC EXAM: CT Abdomen WITH contrast INDICATION: Left upper abdominal pain COMPARISON: None available TECHNIQUE: Abdomen was scanned utilizing a multidetector helical scanner from the lung base to the iliac crest after administration of IV contrast. Coronal and sagittal reformations were obtained. Routine protocol was performed. Scan was performed when during portal venous phase. IV CONTRAST: 96 mL of Omnipaque 300 ORAL CONTRAST: Water COMPLICATIONS: None RADIATION DOSE: Total DLP: 482 mGy*cm Estimated effective dose: (DLP x 0.015 x size factor) mSv CTDIvol has been reviewed. It is below the limits set by the Radiation Protocol Committee (RPC). FINDINGS: LINES and TUBES: None. LOWER THORAX: Mild right lower lobe lower lobe ground glass opacities, likely focal pneumonia or aspiration. Mild dependent atelectasis. HEPATOBILIARY: Diffusely decreased attenuation of the liver compared to the spleen, consistent with steatosis. No focal hepatic lesions. No intrahepatic biliary ductal dilation. GALLBLADDER: Surgically absent. Common bile duct dilatation up to 9 mm, consistent with postcholecystectomy reservoir effect. SPLEEN: No splenomegaly. Well-circumscribed 8 mm soft tissue density lesion inferior to the spleen (image 59, series 601), most consistent with a splenule. PANCREAS: No focal masses or ductal dilatation. ADRENALS: No adrenal nodules. KIDNEYS/URETERS: Kidneys enhance symmetrically. No hydronephrosis. Nonspecific lobulated contour bilaterally. No perinephric fat stranding. Well-circumscribed 3.0 x 3.3 x 2.9 cm partially exophytic right interpolar cystic lesion (image 28-30, series 2) with minimal thin septation and multiple punctate wall calcifications (Bosniak 2F). GI TRACT: No abnormal distention, wall thickening, or evidence of bowel obstruction of the proximal small bowel and partially visualized colon. LYMPH NODES: Multiple left para-aortic lymph nodes with the largest measuring 1.8 x 2.5 cm (series 2 image 31). VESSELS: Unremarkable. PERITONEUM / RETROPERITONEUM: No free air or fluid. 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 Mild degenerative changes within the thoracic spine. SOFT TISSUES: Unremarkable. IMPRESSION IMPRESSION: 1. 3.3cm right interpolar cyst with punctate internal calcifications. Bosniak 2F , recommend US or CT followup in 6 months. 2. Hepatic steatosis. 3. Multiple left para-aortic lymph nodes. This may represent lymphoma. However, metastatic lymph nodes from an unknown primary such as a pelvic malignancy (not imaged). 4. Subtle groundglass opacity in the right lower lobe, possibly aspiration pneumonia. Dictated By: Garfield Blanco MD, 09/25/2018 10:20 AM I have reviewed the study and agree with the findings in this report. Signed By: Estevan Jacobs MD, 09/25/2018 3:51 PM Performing Organization Address [facility] [employer] Phone Number SMS * LIVER PROFILE (09/11/2018 11:20 AM TEST EQUIPMENT MECHANIC) T Protein 7.9 6.0 - 8.3 g/dL [facility] 1 Albumin 4.1 3.7 - 5.3 g/dL [facility] 1 T Bilirubin 0.5 0.2 - 1.2 mg/dL [facility] 1 Alk Phos 79 34 - 104 U/L [facility] 1 AST 18 13 - 39 U/L [facility] 1 ALT 15 7 - 52 U/L [facility] 1 D Bilirubin 0.1 0.0 - 0.2 mg/dL [facility] 1 Specimen Blood Performing Organization Address [facility]46elkshi Phone Number M[facility]YS [facility] 1 * BASIC METABOLIC PANEL (09/11/2018 11:20 AM TEST EQUIPMENT MECHANIC) CO2 31 21 - 31 mmol/L [facility] 1 Chloride 99 98 - 107 mmol/L [facility] 1 Potassium 4.4 3.5 - 5.1 mmol/L [facility] 1 Sodium 140 136 - 145 mmol/L [facility] 1 Glucose 172 (H) 70 - 110 mg/dL [facility] 1 Urea Nitrogen 19 7 - 25 mg/dL [facility] 1 Creatinine 0.90 0.6 - 1.2 mg/dL [facility] 1 Anion Gap 10 [facility] 1 Calcium 10.0 8.6 - 10.3 mg/dL [facility] 1 GFR, Estimated >60 mL/min/1.73 m2 [facility] 1 GFR, Estim, >60 mL/min/1.73 m2 [facility] Afr-Am 1 Specimen Blood Performing Organization Address [facility]/Zipcode Phone Number MISYS [facility] 1 after 12/02/2017 Insurance Type Payer Benefit Subscriber ID Effective Phone Address Plan / Dates Group [place] [employer] [place] x[place]xx 2018 [address] [employer]ILY - [id number] PLANNING [address] [place], [place] [address] [employer] xxxxxxx 2018- [phone] [id number] [place] [address]
[2018-12-03] MEDS ORDERED: SODIUM CHLORIDE 0.9% 1000ML 1,000 ML IV STA (23:54)
[2018-12-04 00:18] LABS: BASOPHILS % 0.2 % (0.0-1.0); EOSINOPHILS # (AUTO) 0.1 (0.0-0.4); EOSINOPHILS % 0.6 % (0.0-6.0); HEMATOCRIT 38.6 % (34.2-44.1); HEMOGLOBIN 13.2 g/dL (12.0-16.0); LYMPHOCYTES # (AUTO) 2.7 (1.0-3.2); LYMPHOCYTES % 30.1 % (18.0-39.1); MEAN CORPUSCULAR HEMOGLOBIN 28.1 pg (28-32); MEAN CORPUSCULAR HGB CONC 34.2 g/dL (31-35); MEAN CORPUSCULAR VOLUME 82.1 fL (81-99); MONOCYTES # (AUTO) 0.8 (0.2-0.8); NEUTROPHILS # (AUTO) 5.4 (2.1-6.9); NEUTROPHILS % 59.9 % (38.7-80.0); PLATELET COUNT 397 x10e3/uL (140-360); RED CELL DISTRIBUTION WIDTH 13.3 % (11.7-14.4)
[2018-12-04 00:31] LABS: ALANINE AMINOTRANSFERASE 13 IU/L (0-55); ALBUMIN 4.2 g/dL (3.5-5.0); ALBUMIN/GLOBULIN RATIO 0.9 (0.8-2.0); ALKALINE PHOSPHATASE 70 IU/L (40-150); ANION GAP 16.9 mmol/L (8-16); BLOOD UREA NITROGEN 27 mg/dL (7-26); BUN/CREATININE RATIO 28 (6-25); CALCIUM 11.1 mg/dL (8.4-10.2); CARBON DIOXIDE 28 mmol/L (22-29); CHLORIDE 99 mmol/L (98-107); CREATININE, SERUM 0.96 mg/dL (0.57-1.11); EST GLOMERULAR FILTRATION RATE > 60 ML/MIN (60-); GLUCOSE 116 mg/dL (74-118); POTASSIUM 3.9 mmol/L (3.5-5.1); SODIUM 140 mmol/L (136-145)
[2018-12-04 00:43] LABS: HIV 1&2 AB SCREEN NON-REACTIVE (NONREACTIVE)
--- NOTE | 2018-12-04 01:24 | Diagnostic Imaging Report ---
History: Swollen lymph nodes, and right tonsils Comparison studies: None Technique: Axial, coronal and sagittal images from the skull base to the thoracic inlet. Coronal and sagittal images reconstructed from the axial data. Dose modulation, iterative reconstruction, and/or weight based adjustment of the mA/kV was utilized to reduce the radiation dose to as low as reasonably achievable. Intravenous contrast: 100 cc of Omnipaque 300. Findings: Soft tissues: The oral pharyngeal tonsils are homogeneously enlarged and partially obstruct the oropharyngeal airway. No fluid collections on the duodenal mucosa to suggest the presence of peritonsillar abscesses. Lymph nodes: Homogeneous, nonenhancing, nonnecrotic, noncalcified bilateral jugulodigastric (1.8 cm on the right, 2.7 cm on the left) are reactive. Multiple additional reactive 1 to 1.5 cm bilateral submandibular and through the rest of the supra and infrahyoid jugular chains. Vessels: Arteries and veins are patent. Glands (thyroid, parotid and submandibular): Normal in size and symmetric. No masses. Orbits: No abnormalities. Paranasal sinuses: Nonobstructing retention cyst in the right maxillary sinus. Otherwise clear. Temporal bones: No abnormalities. Skull base and facial bones: Intact. Cervical spine: Straightening of the usual cervical lordosis is probably positional. Mildly degenerated disc at C4-5. IMPRESSION: 1. Nonspecific bilateral tonsillitis. The enlarged tonsils partially obstructing the oropharyngeal airway. 2. No peritonsillar abscesses. 3. Nonnecrotic bilateral reactive jugulodigastric, submandibular and supra and infrahyoid adenopathy. 4. Otherwise, no significant abnormalities. Signed by: Dr. Miah Coburn M.D. on 12/04/2018 1:21 AM
[2018-12-04] MEDS ORDERED: HYDROCODONE/APAP 10MG-325MG TAB PO ONE (01:30)
[2018-12-04] MEDS ORDERED: CEFTRIAXONE SOD 1 GM/NS 50 ML 50 ML IV ONE (01:30)
[2018-12-04] MEDS ORDERED: DEXAMETHASONE SOD PHOS 10 MG/1 ML VIAL IV ONE (01:45)
[2018-12-04] MEDS ORDERED: CEFTRIAXONE SOD 1 GM VIAL ONE (01:48)
[2018-12-04] MEDS ORDERED: SODIUM CHLORIDE 0.9% 50ML 50 ML ONE (01:57)
[2018-12-04] MEDS ORDERED: IOPAMIDOL 370 MG/ML 200 ML INFUS..BTL INJ ONE (01:57)
[2018-12-04 02:00] VITALS: BP 138/78
== END 2018-12-04 02:24 | disposition home or self-care (01) ==
LOC: ER 23:17
DX: J03.01 Acute recurrent streptococcal tonsillitis (principal); E11.9 Type 2 diabetes mellitus without complications; I88.9 Nonspecific lymphadenitis, unspecified
CPT/HCPCS: 36415; 70491; 80053; 83518; 85025; 86308; 87390; 99284; G0433; G0435; J0696; J1100; J7030; Q9967

== ENCOUNTER 2025-07-04 12:46 | Emergency (ER) | payer MEDICARE, OTHER ==
[~2025-07-04] VITALS: Ht 157.5 cm; Wt 68.0 kg
[2025-07-04 13:20] VITALS: TEMP 97.1
[2025-07-04 13:56] LABS: BASOPHILS % 0.2 % (0.0-1.0); EOSINOPHILS % 1.7 % (0.0-6.0); LYMPHOCYTES % 32.1 % (18.0-39.1); MONOCYTES % 16.0 % (4.4-11.3); NEUTROPHILS % 50.0 % (38.7-80.0); RED CELL DISTRIBUTION WIDTH 14.3 % (11.7-14.4)
[2025-07-04 14:07] LABS: EST GLOMERULAR FILTRATION RATE 46.0 ML/MIN (>=60)
[2025-07-04] MEDS: SODIUM CHLORIDE 0.9% 1000ML 1,000 ML IV STA (14:36)
[2025-07-04] MEDS: ONDANSETRON HCL INJ 2MG/ML 2ML 2 MG/ML VIAL IV STA (14:37)
[2025-07-04] MEDS: KETOROLAC TROMETHAMINE 30 MG/ML VIAL IV STA (14:37)
[2025-07-04 14:43] LABS: LEUKOCYTE ESTERASE ,URINE TRACE (NEGATIVE); PROTEIN,URINE DIPSTICK NEGATIVE (NEGATIVE); URINE UROBILINOGEN 0.2 mg/dL (0.2 - 1)
[2025-07-04 14:57] LABS: YEAST,URINE RARE
[2025-07-04] MEDS ORDERED: PYRIDIUM100 MG PO (16:02)
[2025-07-04] MEDS ORDERED: VESICARE5 MG PO (16:02)
[2025-07-04] MEDS ORDERED: CEFDINIR300 MG PO (16:02)
[2025-07-04 16:20] VITALS: PULSE 82; RESP 16; O2SAT 99
[2025-07-04] MEDS ORDERED: SODIUM CHLORIDE 0.9% 1000ML 1,000 ML ONE (19:06)
== END 2025-07-04 16:25 | disposition home or self-care (01) ==
LOC: ER 13:34
DX: T83.84XA Pain due to genitourinary prosthetic devices, implants and grafts, initial encounter (principal); N39.0 Urinary tract infection, site not specified; R10.32 Left lower quadrant pain; R11.0 Nausea; N28.9 Disorder of kidney and ureter, unspecified; E11.9 Type 2 diabetes mellitus without complications
CPT/HCPCS: 36415; 74176; 80053; 81001; 85025; 87086; 87186; 99284; J0696; J1885; J2405; J7030